=== PATIENT | male | born 1965 | race Caucasian/White ===

== ENCOUNTER 2020-12-05 04:29 | Emergency (ER) | payer BC, SELFPAY ==
[2020-12-05 04:30] VITALS: BP 132/85; PULSE 62; RESP 18; TEMP 36.6; O2SAT 98; BMI 32.6
--- NOTE | 2020-12-05 04:42 | ECG_ITS ---
[facility] Test Date: 2020-12-05 Pat Name: Sanford Lamar Department: Room: Gender: Male [employer] Officer: : 1965 Requested By: Arleen Weinberg Order Number: [id number] Delmy MD: Arie Alcocer M.D. Measurements Intervals [place] Rate: 60 P: 47 SD: 158 QRS: 28 QRSD: 110 T: 54 QT: 416 QTc: 418 Interpretive Statements SINUS RHYTHM No previous ECG available for comparison Electronically Signed On 12-05-2020 19:31:21 CDT by Arie Alcocer M.D. [id number]
--- NOTE | 2020-12-05 04:47 | W.ED.SYNCOPE ---
HPI - Syncope General: Chief Complaint: Syncope Stated Complaint: syncope Time Seen by Provider: 12/05/20 04:38 Source: patient Mode of arrival: ambulatory Limitations: no limitations History of Present Illness: HPI narrative: 55-year-old male states that he got up roughly an hour ago and was going to the bathroom. He states that sometimes he has difficulty urinating he was straining to urinate and he passed out. He states he is members being lightheaded and he fell. He states he does think he had his head reflux is a minor headache now. Denies any chest pain before or after the event. Denies any worsening proving factors. States he feels back to normal. Denies any history of syncope in the past Associated symptoms: Deny abdominal pain, fever(s), headache(s) or nausea Review of Systems Const: Denies: fever(s), chills, body aches or change in appetite Eyes: Denies: blurry vision or eye discomfort ENMT: Denies: throat pain or dental pain Card: Reports: syncope Resp: Denies: dyspnea GI: Denies: abdominal pain, nausea, vomiting or diarrhea : Denies: dysuria Musc: Denies: neck pain or back pain Skin/Breast: Denies: rash Neuro: Denies: headache(s) Psych: Denies: depression Foreign/Lymph: Denies: easy bruising All/Imm: Denies: urticaria Physical Exam Const: COMMON NORMALS: no acute distress, patient oriented x3 and healthy appearing HENMT: COMMON NORMALS: normocephalic and atraumatic HEAD & SCALP: normocephalic and atraumatic Eye: COMMON NORMALS: Equal, round and reactive pupils present and EOMs intact bilaterally PUPIL: Yes Equal, round and reactive pupils present Neck/C-Spine: COMMON NORMALS: full ROM and supple Chest: COMMONS NORMALS: normal inspection of the chest and normal palpation of entire chest wall Resp: COMMON NORMALS: normal respiratory effort, No retractions, No use of accessory muscles and clear to auscultation bilaterally AUSCULTATION: clear to auscultation bilaterally Cardio: COMMON NORMALS: regular rate, regular rhythm and No murmurs present (Cardio) RATE: regular rate RHYTHM: regular rhythm GI: COMMON NORMALS: Normal to inspection, nondistended, normoactive bowel sounds present, Soft to palpation, non-tender and no masses PALPATION: Yes Soft to palpation Extremity: COMMON NORMALS: normal to inspection and full ROM Neuro: COMMON NORMALS: patient oriented x3, moves all extremities and no focal motor deficits Psych: COMMON NORMALS: mental status grossly normal, Normal thought process present and cooperative THOUGHT PROCESS: Normal thought process present Skin: COMMON NORMALS: no rashes or lesions noted and no wounds GENERAL SKIN EXAM: no rashes or lesions noted Course Vital Signs: Vital signs: Vital Signs Temperature 97.9 F 12/05/20 04:30 Pulse Rate 62 12/05/20 04:30 Respiratory Rate 18 12/05/20 04:30 Blood Pressure 132/85 12/05/20 04:30 Pulse Oximetry 98 12/05/20 04:30 MDM - Syncope MDM Narrative: Medical decision making narrative: Patient presents with syncope likely vagal from straining due to the bathroom. His EKG blood work and CT head here are all normal. He feels improved. He is stable for discharge is to follow-up his PCP and return if worsening. Lab Data: Labs: Lab Results 12/05/20 12/05/20 Range/Units 04:53 04:53 WBC 8.5 (4.0-10.0) 10^3/ uL RBC 4.94 (4.1-5.3) 10^6/u L Hgb 14.7 (11.7-16.6) g/dL Hct 44.1 (42.0-52.0) % MCV 89.3 (80-94) fl MCH 29.8 (28.0-34.0) pg MCHC 33.3 (30.0-36.0) g/dL RDW 12.5 (12.1-15.1) % Plt Count 261 (130-400) 10^3/c mm MPV 9.9 (7.4-10.4) fL Neut % (Auto) 58.0 % Lymph % (Auto) 32.1 % [place] % (Auto) 7.2 % Eos % (Auto) 2.1 % Baso % (Auto) 0.4 % Neut # (Auto) 4.94 (1.8-7.7) 10^3/u L Lymph # (Auto) 2.7 (0.8-4.8) 10^3/u L [place] # (Auto) 0.6 (0.2-0.9) 10^3/u L Eos # (Auto) 0.2 (0.0-0.8) 10^3/u L Baso # (Auto) 0.0 (0.0-0.1) 10^3/u L Nucleated RBC % (a uto) 0 % Nucleated RBCs # 0.0 /100WBC Sodium 135 L (136-145) mmol/L Potassium 3.6 (3.5-5.1) mmol/L Chloride 97 L (98-107) mmol/L Carbon Dioxide 28 (22-29) mmol/L Anion Gap 13.6 (5-19) BUN 19 (6-20) mg/dL Creatinine 1.1 (0.7-1.2) mg/dL GFR Calculation 69.5 L (90-130) mL/min Glucose 174 H (65-115) mg/dL Calculated Osmolal ity 286 (285-295) mOsm/k g Calcium 9.4 (8.5-10.5) mg/dL Imaging Data^: CT Head: Radiologist's impression: [address] [place] [address] CT Scan Report Signed Patient: Sanford Lamar Unit #: [id number] : 1965 Age/Sex: 55 / M ADM Date: 12/05/20 Loc: ER Room/Bed: Attending Dr: Ordering Provider/Ordering MD: Arleen Weinberg MD Date of Service: 12/05/20 Procedure(s): CT head wo con* [id number] Accession Number(s): [id number] Report Number: [id number] PROCEDURE INFORMATION: Exam: CT Head Without Contrast Exam date and time: 12/05/2020 4:46 AM Age: 55 years old Clinical indication: Injury or trauma; Blunt trauma (contusions or hematomas); Patient HX: Syncope with fall in bathroom just prior to arrival. Sustained blow to head. C/O head pain. TECHNIQUE: Imaging protocol: Computed tomography of the head without contrast. Radiation optimization: All CT scans at this facility use at least one of these dose optimization techniques: automated exposure control; mA and/or kV adjustment per patient size (includes targeted exams where dose is matched to clinical indication); or iterative reconstruction. COMPARISON: No relevant prior studies available. RADIATION DOSE METRICS: Total DLP (mGy-cm): 910.87 FINDINGS: Brain: No hemorrhage. No edema, mass effect or midline shift. Cerebral ventricles: No ventriculomegaly. Paranasal sinuses: Visualized sinuses are unremarkable. No fluid levels. Mastoid air cells: No mastoid effusion. Bones/joints: No acute fracture. Soft tissues: Unremarkable. CT/CT head wo con* [id number] IMPRESSION: No acute intracranial abnormality. Radiation Dose CTDIVOL = (mGy): DLP = 910.87 (mGy-cm) Dictated By: Taya Blanchard MD Signed By: Taya Blanchard MD Signed Date/Time: 12/05/20512 DD/ 0 EKG Data^: EKG 1: Attestation: I personally reviewed and interpreted this EKG as follows: EKG interpretation date: 12/05/20 EKG interpretation time: 04:49 Interpretation: nsr hr [address] or t wave abnormalities qrs 110 qtc 417 Discharge Plan Discharge Patient Disposition: Home Clinical Impression: Syncope Qualifiers: Syncope type: unspecified Qualified Code(s): R55 - Syncope and collapse Condition: Stable Discharge Orders: Discharge ED (Routine); Ordered 12/05/20 Ordered By: Arleen Weinberg Referrals: Kendra Romo, REGISTERED NURSE FLOAT POOL [Primary Care Provider] - 1-3 days Discharge Diet: Advance as tolerated Discharge Activity: Resume usual activity Patient Instructions: Syncope (ED) Coding Level of Care Code ED Collar Feller for Chg Fwd Exam Comprehensive
[2020-12-05 05:02] LABS: Basophils % 0.4 %; Eosinophils # 0.2 10^3/uL (0.0-0.8); Eosinophils % 2.1 %; Hematocrit 44.1 % (42.0-52.0); Hemoglobin 14.7 g/dL (11.7-16.6); Lymphocytes # 2.7 10^3/uL (0.8-4.8); Lymphocytes % 32.1 %; Mean Corpuscular HGB Conc 33.3 g/dL (30.0-36.0); Mean Corpuscular Hemoglobin 29.8 pg (28.0-34.0); Mean Corpuscular Volume 89.3 fl (80-94); Mean Platelet Volume 9.9 fL (7.4-10.4); Monocytes # 0.6 10^3/uL (0.2-0.9); Monocytes % 7.2 %; Neutrophils # 4.94 10^3/uL (1.8-7.7); Nucleated Red Blood Cells % 0 %; Platelet Count 261 10^3/cmm (130-400); Red Blood Count 4.94 10^6/uL (4.1-5.3); Red Cell Distribution Width 12.5 % (12.1-15.1); White Blood Count 8.5 10^3/uL (4.0-10.0)
[2020-12-05] MEDS: sodium chloride 0.9% 1,000 ML 999 ML IV (05:04)
[2020-12-05 05:29] LABS: Anion Gap 13.6 (5-19); Blood Urea Nitrogen 19 mg/dL (6-20); Calcium 9.4 mg/dL (8.5-10.5); Carbon Dioxide 28 mmol/L (22-29); Chloride 97 mmol/L (98-107); Glomerular Filtration Rate 69.5 mL/min (90-130); Glucose 174 mg/dL (65-115); Osmolality Calculated 286 mOsm/kg (285-295); Potassium 3.6 mmol/L (3.5-5.1); Sodium 135 mmol/L (136-145)
[2020-12-05 05:49] VITALS: BP 122/80; PULSE 57; RESP 18; O2SAT 100
== END 2020-12-05 05:52 | disposition home or self-care (01) ==
PROVIDERS: Emergency Provider Emergency Medicine; PCP Registered Nurse
DX: R55 Syncope and collapse (principal)
CPT/HCPCS: 70450; 80048; 85025; 93005; 96360; 99284; J7030